=== PATIENT | female | born 1995 | race Hispanic/Latino ===

== ENCOUNTER 2017-09-28 19:18 | Day surgery (SDC) | payer MEDICAID, OTHER ==
[2017-09-28 19:49] VITALS: BMI 46.6
[2017-09-28 19:50] VITALS: BP 117/56; TEMP 99
[2017-09-28 20:24] LABS: Amnisure Test No Membranes Rupture (No Rupture)
[2017-09-28 20:25] LABS: Amnisure Internal Control QC ACCEPTABLE (ACCEPTABLE)
--- NOTE | 2017-09-28 20:27 | PDOC.FPROB ---
Addendum entered and electronically signed by Gloria Madrigal MD 09/28/17 21:40 : VP3 neg. Membranes still intact. Patient will be discharged and have close follow up with Dr. Doty. Encouraged pelvic rest and PO hydration. Patient has appointment with Dr. Doty on . Original Note: FMR OB H&P: HPI - History of Present Illness Chief Complaint: loss of fluid History of Present Illness: Patient is a 21 yo F at 35.5wks by LMP/10.1wk US presenting today for loss of fluid, she has a hx of a delivery with pre-eclampsia at 35wks with previous child and 2 spontaneous abortions. Patient also has PMH of DMII but was taken off meds for low sugars and apparent thyroid disorder resolved. Patient endorses dark fluid around 1300 with a arthur of clear fluid later in the day today. The patient reports no CTX at this time. States he feels baby move. She endorses headache and spots in her vision early today but says this has resolved. Her BP today was 117/76 on exam. Patient denies SOB or swelling more than normal. Primary Care Physician: Dr. Doty FMR OB H&P: Current - Care : 4 Para: 0121 Gestational age: 35.5 - OB Labs Blood type: unknown RH: unknown Antibody Screen: negative HIV: negative RPR: negative HepBsAg: negative Rubella: immune Quad screen: negative Urine drug screen: not done Gonorrhea: unknown Chlamydia: unknown GBS: unknown FMR OB H&P: History - Past Medical History PMH: DMII, apparent resolution of thyroid disorder - OB History OB History: 1 pre-term delivery with pre-eclampsia, 2 first trimester spontaneous abortions FMR OB H&P: Medications - Current Home Medications: Medication Instructions Recorded Confirmed Type Aspirin [Children's Aspirin] 81 mg PO DAILY 09/28/17 09/28/17 History Vit 108/Iron/Folic AC 1 tablet PO DAILY 09/28/17 09/28/17 History [ One Tablet] Allergies/Adverse Reactions: Allergies Allergy/AdvReac Type Severity Reaction Status Date / Time No Known Allergies Allergy Verified 09/28/17 19:45 FMR OB H&P: ROS - Review of Systems General: denies: fever/chills, weight/appetite/sleep changes, night sweats Eyes: reports: vision changes (dots in her vision). denies: eye pain, double vision ENT: denies: nasal congestion, rhinorrhea Cardiovascular: denies: chest pain, palpitation, edema Respiratory: denies: cough, congestion, shortness of breath Gastrointestinal: denies: abdominal pain, cramping, nausea, vomiting, diarrhea Genitourinary (Female): denies: incontinence, dysuria, hematuria, vaginal discharge, vaginal pain, vaginal bleeding, contractions, vaginal pressure FMR OB H&P: Vital Signs - Maternal Vital signs: Vital Signs - First Documented Temp Pulse Resp BP 99.0 F 97 18 117/56 L 09/28/17 19:44 09/28/17 19:44 09/28/17 19:44 09/28/17 19:44 - Heart Tones Baseline: 160 Variability: moderate Acceleration: present Deceleration: absent Category: category 1 FMR OB H&P: Physical Exam - Physical Exam General: NAD, awake, alert and oriented HEENT: normocephalic and atraumatic, EOMI, grossly normal vision, grossly normal hearing Neck: supple Chest: non-tender to palpation Heart: RRR, normal S1/S2, no murmurs/rubs/gallops General: CTAB, no respiratory distress, good air movement Abdomen: soft, gravid, non-tender FMR OB H&P: A/P - Problem List (1) Status: Acute (2) Diabetes Status: Acute Code(s): E11.9 - TYPE 2 DIABETES MELLITUS WITHOUT COMPLICATIONS Disposition: Patient is a 21 yo F at 35.5wks by LMP/10.1wks, with hx of delivery with pre-eclampsai at 35wks, presenting for loss of fluid. GBS Unknown. 1. Pre-term labor Rule Out - Amnisure ordered and resulted Neg - Ordered VP3 - results pending; if pos will tx - Completed speculum exam: no pooling, white discharge present - Will send patient home with close follow up with Dr. Doty Discussion: Date/Time: 09/28/172022 This H&P was discussed with [] and [] who agree with the above documentation and plan. Attending Addendum - Attending Addendum Date/Time: 09/29/17725 I personally evaluated the patient and discussed the management with Dr. Madrigal I agree with the History, Examination, Assessment and Plan documented above with any addition or exceptions noted below. 21 yo F at 35.5wks by LMP/10.1wk US presenting for r/o PPROM. Negative amnisure, pooling, valsalva and ferning. FHTs 150s/moderate variability/accels present/no decels BP Normotensive entire visit. Pt denies CAMACHO, visual changes and RUQ pain at this time. VP3 negative D/C to home with precautions.
== END 2017-09-28 21:55 | disposition home health service (06) ==
LOC: L&D/OP 19:18
PROVIDERS: ATTEND Student in an Organized Health Care Education/Training Program
DX: O42.913 Preterm premature rupture of membranes, unspecified as to length of time between rupture and onset of labor, third trimester (principal); O24.913 Unspecified diabetes mellitus in pregnancy, third trimester; Z3A.35 35 weeks gestation of pregnancy; Z79.82 Long term (current) use of aspirin
CPT/HCPCS: 84112; 87480; 87510; 87660; 99284

== ENCOUNTER 2017-10-14 22:00 | Inpatient (IN) | payer MEDICAID, OTHER ==
[2017-10-14 23:59] VITALS: BMI 47.8
[2017-10-15] MEDS: Lactated Ringer's 1,000 ML IV SCH ×3 (00:30→18:16)
[2017-10-15] MEDS ORDERED: Promethazine HCl 25 MG/ML VIAL IM PRN ×2 (00:31→17:25)
[2017-10-15] MEDS ORDERED: Ondansetron HCl/PF 4 MG/2 ML Vial IVP PRN ×2 (00:31→17:25)
[2017-10-15] MEDS ORDERED: Lidocaine 1% (PF) 30 ML VIAL SC PRN (00:37)
[2017-10-15] MEDS ORDERED: NS / Oxytocin 40 units/1000ml 1,000 ML IV PRN (00:37)
[2017-10-15] MEDS ORDERED: NS w/ Oxytocin 10 units 500 ML IV SCH (00:45)
[2017-10-15] MEDS: Misoprostol 100 MCG TAB VAG SCH ×2 (01:00→05:39)
--- NOTE | 2017-10-15 01:08 | PDOC.FPROB ---
FMR OB H&P: HPI - History of Present Illness Chief Complaint: IOL Indentification: 21 yo @ 38.1 wks by 10.1 wk US cw LMP History of Present Illness: Pt presents for IOL for poorly controlled type B DM Primary Care Physician: Dr. Doty FMR OB H&P: Current - Care : 4 Para: 1 Gestational age: 38.1 Due date: 10/28/17 Dating Criteria: 10.1 wk US cw LMP Course/Complications: DMB, hx of Pre-E, polyhyrdramnios on US - OB Labs Blood type: O RH: positive Antibody Screen: negative HIV: negative RPR: negative HepBsAg: negative Rubella: immune Quad screen: negative Urine drug screen: not done Gonorrhea: negative Chlamydia: negative A1c: 5.0-->5.2% GBS: negative - Additional Ultrasound Additional: polyhydramnios improved on repeat US FMR OB H&P: History - Past Medical History PMH: DMII treated with metformin - OB History OB History: 2 SABs Pre-Ecclampsia with premature delivery in 2011, iron-deficiency anemia - COGNOS History COGNOS History: none - Surgical History Sx History: cholecystectomy - Social History Social History: none - Family History Family History: neo syndrome FMR OB H&P: Medications - Current Home Medications: Medication Instructions Recorded Confirmed Type Aspirin [Children's Aspirin] 81 mg PO DAILY 09/28/17 10/15/17 History Vit 108/Iron/Folic AC 1 tablet PO DAILY 09/28/17 10/15/17 History [ One Tablet] Allergies/Adverse Reactions: Allergies Allergy/AdvReac Type Severity Reaction Status Date / Time No Known Allergies Allergy Verified 10/15/17 00:01 FMR OB H&P: ROS - Review of Systems General: reports: weight/appetite/sleep changes. denies: fever/chills Eyes: denies: vision changes, scotomas, floaters ENT: denies: nasal congestion, rhinorrhea Cardiovascular: denies: chest pain, palpitation Respiratory: denies: shortness of breath Gastrointestinal: denies: abdominal pain, indigestion Genitourinary (Female): denies: dysuria, hematuria Neurologic: denies: syncope, seizures Integumentary: denies: itching, rash Breast: denies: lumps, bumps FMR OB H&P: Vital Signs - Maternal Vital signs: BP 120/70s, pulse 80s, resp 16, afebrile - Heart Tones Baseline: 130 Variability: moderate Acceleration: present Deceleration: absent Category: category 1 [place] contractions every: none FMR OB H&P: Physical Exam - Physical Exam General: NAD HEENT: normocephalic and atraumatic, grossly normal vision, grossly normal hearing Neck: supple, trachea midline Chest: non-tender to palpation Heart: RRR, normal S1/S2, no murmurs/rubs/gallops General: CTAB, no respiratory distress Abdomen: soft, gravid, non-tender Musculoskeletal: normal gait and station, pulses present, FROM in all four extremities Neurological: sensation to pain,touch and proprioception grossly normal Skin: no rash, good tugor Lymphatic: no unusual bruising or bleeding - Pelvic Exam Vulva: normal hair distribution SVE: CL/TH/HI [place] score: 0 Membranes: intact Presentation: vertex Estimated Weight: 7 lbs FMR OB H&P: A/P - Problem List (1) Encounter for induction of labor Current Visit: Yes Status: Acute Code(s): Z34.90 - ENCNTR FOR SUPRVSN OF NORMAL , UNSP, UNSP TRIMESTER Assessment and Plan: -cervix CL/TH/HI - cytotec placed, recheck and re-administer in 4 hours - continuous monitoring (2) Diabetes mellitus during Current Visit: Yes Status: Acute Code(s): O24.919 - UNSP DIABETES MELLITUS IN , UNSPECIFIED TRIMESTER Assessment and Plan: - monitor blood glucose, accuchecks q2hr - insulin drip if needed (3) History of pre-eclampsia in prior , currently Current Visit: Yes Status: Acute Code(s): O09.299 - SUPRVSN OF PREG W POOR REPRODCTV OR OBSTET HISTORY, UNSP TRI Assessment and Plan: - blood pressure checks per unit routine - monitor for swelling or neurologic changes Disposition: admit to OB service for IOL, cytotec and pitocin for labor augmentation Discussion: Date/Time: 10/15/17 0106 This H&P was discussed with [Pepe] and [Kassandra] who agree with the above documentation and plan. Attending Addendum - Attending Addendum Date/Time: 10/15/17 0200 I personally evaluated the patient and discussed the management with Dr. Mary I agree with the History, Examination, Assessment and Plan documented above with any addition or exceptions noted below- 21 yo LAF @ 38 weeks admitted for induction of labor due to Class B DM. Denies any ctx, LOF, VB (+) FM. Denies any CAMACHO, visual changes. Afebrile BP 125/70 SVE closed/thick/high. FHTs- Category 1; [place]- no ctx. A/P: 1) IUP @ 38 weeks - Cytotec placed. Plan to recheck in [address] another if needed. Reassuring FHTs 2) Class B DM - Per patient BG post breakfast =119. Current BG pending. Monitor q2 hours.
[2017-10-15 01:17] LABS: Hemoglobin 11.6 g/dL (12.0-16.0); Mean Corpuscular HGB CONC 35.7 g/dL (32.0-36.0); Mean Corpuscular Hemoglobin 28.9 pg (27.0-31.0); Mean Corpuscular Volume 81.1 fL (78.0-98.0); Mean Platelet Volume 8.4 fL (7.4-10.4); Platelet Count 219 thou/uL (130-400); RBC Distribution Width 13.7 % (11.5-14.5); White Blood Cell (WBC) Count 8.2 thou/uL (4.8-10.8)
[2017-10-15 01:54] LABS: Syphilis Antibody Nonreactive (Nonreactive); Syphilis Antibody Index 0.06 S/CO (<1.00 Non-Reactive)
[2017-10-15 01:55] LABS: HBSAg Index 0.23 S/CO (0-0.99); Hep B Surf Ag Non-Reactive S/CO (NonReactive)
[2017-10-15 03:09] LABS: Glucose 102 mg/dL (70-105)
--- NOTE | 2017-10-15 05:43 | PDOC.LDPN ---
Labor & Delivery Progress Note - Subjective Subjective: painful contractions - Objective Vital signs reviewed and normal: yes General: resting Uterine fundus: non tender Dilation: 0 Effacement: 0% Station: -3 FHT: category 1 (baseline 140, moderate variability, accelx2) [place] contractions every: 3-6 mins Procedures: cytotec #2 placed - Assessment (1) Encounter for induction of labor Code(s): Z34.90 - ENCNTR FOR SUPRVSN OF NORMAL , UNSP, UNSP TRIMESTER Current Visit: Yes Status: Acute (2) Diabetes mellitus during Code(s): O24.919 - UNSP DIABETES MELLITUS IN , UNSPECIFIED TRIMESTER Current Visit: Yes Status: Acute (3) History of pre-eclampsia in prior , currently Code(s): O09.299 - SUPRVSN OF PREG W POOR REPRODCTV OR OBSTET HISTORY, UNSP TRI Current Visit: Yes Status: Acute Plan: continue plan of care (cytotec placed, continued monitoring, recheck in 4 hours )
--- NOTE | 2017-10-15 08:13 | PDOC.LDPN ---
Labor & Delivery Progress Note - Subjective Subjective: comfortable (Pt. states she can feel the contractions, denies cp, CAMACHO , LOF, or Dyspnea) - Objective Vital signs reviewed and normal: yes General: NAD, resting Uterine fundus: non tender FHT: category 1 (moderate variability, baseline 140s, no decels, accels present) [place] contractions every: 3-5 minutes - Assessment (1) Diabetes mellitus during Code(s): O24.919 - UNSP DIABETES MELLITUS IN , UNSPECIFIED TRIMESTER Current Visit: Yes Status: Acute (2) Encounter for induction of labor Code(s): Z34.90 - ENCNTR FOR SUPRVSN OF NORMAL , UNSP, UNSP TRIMESTER Current Visit: Yes Status: Acute (3) History of pre-eclampsia in prior , currently Code(s): O09.299 - SUPRVSN OF PREG W POOR REPRODCTV OR OBSTET HISTORY, UNSP TRI Current Visit: Yes Status: Acute (4) Current Visit: No Status: Acute Plan: continue plan of care -: This is a @ 38.3wks with PMH of pre-eclampsia in previous pregancy, DM class B She was unchaged at last SVE at 0546 at which point a second dose of cytotec was added. We will recheck her at 0900 and at that point consider a third dosed of cytotec vs. balloon, vs. pitocin.
[2017-10-15] MEDS ORDERED: Butorphanol Tartrate 1 MG/ML VIAL SLOW IVP PRN (09:48)
--- NOTE | 2017-10-15 15:39 | PDOC.LDPN ---
Labor & Delivery Progress Note - Subjective Subjective: painful contractions, vaginal pressure - Objective Vital signs reviewed and normal: yes General: NAD, resting Uterine fundus: palpable contractions SVE: 3/75/-2 Dilation: 3 Effacement: 75% Station: -2 FHT: category 1 [place] contractions every: 2-3min - Assessment (1) Encounter for induction of labor Code(s): Z34.90 - ENCNTR FOR SUPRVSN OF NORMAL , UNSP, UNSP TRIMESTER Current Visit: Yes Status: Acute Comment: at 38.0w presents for IOL for class BDM. Continues to make good progress. S/p cytotec x2, has ctx q2- 3 min. SVE 3/80/-2. Will start pitocin and get epidural for pain control. Cat 1 strip. Continue routine labor care. (2) Diabetes mellitus during Code(s): O24.919 - UNSP DIABETES MELLITUS IN , UNSPECIFIED TRIMESTER Current Visit: Yes Status: Acute Comment: Yaneth hay, latest 72. Plan: continue plan of care, pitocin for augmentation
[2017-10-15] MEDS ORDERED: DISCONTINUE ALL PREVIOUS NARCOTICS FS SCH (16:30)
[2017-10-15] MEDS ORDERED: Bupivacaine 0.5% 10 ML VIAL ONE (17:00)
[2017-10-15] MEDS ORDERED: Fentanyl 100 MCG/2 ML VIAL ONE (17:00)
[2017-10-15] MEDS ORDERED: Naloxone HCl 0.4 mg/ml Vial IVP PRN ×2 (17:25)
[2017-10-15] MEDS ORDERED: Acetaminophen 325 MG TAB PO PRN (17:25)
[2017-10-15] MEDS ORDERED: Eucerin (Mineral Oil/Petrolatum,White) 30 gm Jar TOP PRN (17:25)
[2017-10-15] MEDS ORDERED: Fentanyl 100 MCG/2 ML VIAL I-THECAL ONE (17:25)
[2017-10-15] MEDS ORDERED: diphenhydrAMINE 50 MG/ML VIAL IVP PRN (17:25)
[2017-10-15] MEDS ORDERED: Lactated Ringer's 500 ML IV PRN (17:25)
[2017-10-15] MEDS ORDERED: ePHEDrine/0.9% NaCl/PF SYRINGE 50 mg/10 ml SLOW IVP PRN (17:25)
[2017-10-15] MEDS ORDERED: Bupivacaine 0.25% 10 ML VIAL EPIDURAL SCH (17:25)
[2017-10-15] MEDS ORDERED: fentaNYL Citrate/PF 400 MCG, Bupivacaine 0.5% 20 ML in Sodium Chloride 0.9% 72 ML EPIDURAL SCH (17:30)
[2017-10-15] MEDS ORDERED: Communication Order-Pharmacy FS SCH (17:30)
[2017-10-15] MEDS: NS w/ Oxytocin 10 units 500 ML IV SCH (17:37)
[2017-10-15] MEDS: Bupivacaine 0.5% 20 ML, fentaNYL Citrate/PF 400 MCG in Sodium Chloride 0.9% 72 ML EPIDURAL SCH (17:46)
--- NOTE | 2017-10-15 19:34 | PDOC.LDPN ---
Labor & Delivery Progress Note - Subjective Subjective: comfortable - Objective Vital signs reviewed and normal: yes General: NAD, breathing through contractions Uterine fundus: non tender Dilation: 3 Effacement: 75% Station: -2 FHT: category 1 (baseline 130, accelx2, no decels ) [place] contractions every: 2-6 mins Procedures: epidural placed - Assessment (1) Encounter for induction of labor Code(s): Z34.90 - ENCNTR FOR SUPRVSN OF NORMAL , UNSP, UNSP TRIMESTER Current Visit: Yes Status: Acute Comment: at 38.0w presents for IOL for class BDM. S/p cytotec x2, has ctx q3-6 min. pitocin began, currently 8 , epidural providing pain control. Cat 1 strip. Continue routine labor care. (2) Diabetes mellitus during Code(s): O24.919 - UNSP DIABETES MELLITUS IN , UNSPECIFIED TRIMESTER Current Visit: Yes Status: Acute Comment: Accuchecks wnl, latest 71. (3) History of pre-eclampsia in prior , currently Code(s): O09.299 - SUPRVSN OF PREG W POOR REPRODCTV OR OBSTET HISTORY, UNSP TRI Current Visit: Yes Status: Acute Comment: most recent pressure 122/70 Plan: continue plan of care (recheck in 2 hours)
--- NOTE | 2017-10-15 21:46 | PDOC.LDPN ---
Labor & Delivery Progress Note - Subjective Subjective: comfortable - Objective Vital signs reviewed and normal: yes General: NAD Uterine fundus: non tender Dilation: 4 Effacement: 75% Station: -3 FHT: category 1 (baseline 130, moderate variability, accelsx2) [place] contractions every: 2-6 mins, couplets Procedures: epidural in place - Assessment (1) Encounter for induction of labor Code(s): Z34.90 - ENCNTR FOR SUPRVSN OF NORMAL , UNSP, UNSP TRIMESTER Current Visit: Yes Status: Acute Comment: at 38.0w presents for IOL for class BDM. S/p cytotec x2, has ctx q2-6 min. pitocin began, currently 12, epidural providing pain control. Cat 1 strip. Continue routine labor care. (2) Diabetes mellitus during Code(s): O24.919 - UNSP DIABETES MELLITUS IN , UNSPECIFIED TRIMESTER Current Visit: Yes Status: Acute Comment: Accuchecks wnl, latest 71. (3) History of pre-eclampsia in prior , currently Code(s): O09.299 - SUPRVSN OF PREG W POOR REPRODCTV OR OBSTET HISTORY, UNSP TRI Current Visit: Yes Status: Acute Comment: most recent pressure 114/70 Plan: continue plan of care (increase pitocin per protocol. recheck in 2 hours, accucheck at that time )
--- NOTE | 2017-10-15 23:50 | PDOC.LDPN ---
Labor & Delivery Progress Note - Subjective Subjective: comfortable - Objective Vital signs reviewed and normal: yes General: NAD, resting Uterine fundus: non tender Dilation: 4 Effacement: 75% Station: -2 FHT: category 1 (baseline 130, moderate variability, accelerationsx3, no decels ) [place] contractions every: 2-8 mins Procedures: epidural in place - Assessment (1) Encounter for induction of labor Code(s): Z34.90 - ENCNTR FOR SUPRVSN OF NORMAL , UNSP, UNSP TRIMESTER Current Visit: Yes Status: Acute Comment: at 38.0w presents for IOL for class BDM. S/p cytotec x2, has ctx q2-8 min. pitocin began, currently 18, epidural providing pain control. Cat 1 strip. Continue routine labor care. (2) Diabetes mellitus during Code(s): O24.919 - UNSP DIABETES MELLITUS IN , UNSPECIFIED TRIMESTER Current Visit: Yes Status: Acute Comment: Accuchecks wnl, latest 73. (3) History of pre-eclampsia in prior , currently Code(s): O09.299 - SUPRVSN OF PREG W POOR REPRODCTV OR OBSTET HISTORY, UNSP TRI Current Visit: Yes Status: Acute Comment: most recent pressure 128/72 Plan: continue plan of care (continue pitocin up to 20 for one hour, then back to 10. recheck in 2 hours. )
[2017-10-16] MEDS: Bupivacaine 0.5% 20 ML, fentaNYL Citrate/PF 400 MCG in Sodium Chloride 0.9% 72 ML EPIDURAL SCH ×3 (01:01→12:26)
--- NOTE | 2017-10-16 02:04 | PDOC.LDPN ---
Labor & Delivery Progress Note - Subjective Subjective: comfortable - Objective Vital signs reviewed and normal: yes General: NAD, breathing through contractions Uterine fundus: non tender Dilation: 5 Effacement: 75% Station: -2 FHT: category 1 (baseline 130, moderate variability, accelsx3 no decels ) [place] contractions every: 2-5 mins Procedures: epidural placed - Assessment (1) Encounter for induction of labor Code(s): Z34.90 - ENCNTR FOR SUPRVSN OF NORMAL , UNSP, UNSP TRIMESTER Current Visit: Yes Status: Acute Comment: at 38.0w presents for IOL for class BDM. S/p cytotec x2, has ctx q2-8 min. pitocin began, currently 20, epidural providing pain control. Cat 1 strip. Continue routine labor care. (2) Diabetes mellitus during Code(s): O24.919 - UNSP DIABETES MELLITUS IN , UNSPECIFIED TRIMESTER Current Visit: Yes Status: Acute Comment: Accuchecks wnl, latest 73. (3) History of pre-eclampsia in prior , currently Code(s): O09.299 - SUPRVSN OF PREG W POOR REPRODCTV OR OBSTET HISTORY, UNSP TRI Current Visit: Yes Status: Acute Comment: most recent pressure 118/72 Plan: continue plan of care (recheck in two hours ), pitocin for augmentation
[2017-10-16] MEDS: Lactated Ringer's 1,000 ML IV SCH ×2 (02:33→14:47)
--- NOTE | 2017-10-16 04:48 | PDOC.LDPN ---
Labor & Delivery Progress Note - Subjective Subjective: comfortable - Objective Vital signs reviewed and normal: yes General: NAD Uterine fundus: non tender Dilation: 5 Effacement: 75% Station: -2 FHT: category 1 (130 baseline, moderate variability, accelsx3) [place] contractions every: 2-6 mins, couplets - Assessment (1) Encounter for induction of labor Code(s): Z34.90 - ENCNTR FOR SUPRVSN OF NORMAL , UNSP, UNSP TRIMESTER Current Visit: Yes Status: Acute Comment: at 38.0w presents for IOL for class BDM. S/p cytotec x2, has ctx q2-8 min. pitocin began, currently 14, epidural providing pain control. Cat 1 strip. Continue routine labor care. (2) Diabetes mellitus during Code(s): O24.919 - UNSP DIABETES MELLITUS IN , UNSPECIFIED TRIMESTER Current Visit: Yes Status: Acute Comment: Accuchecks wnl, latest 67. given gatorade. (3) History of pre-eclampsia in prior , currently Code(s): O09.299 - SUPRVSN OF PREG W POOR REPRODCTV OR OBSTET HISTORY, UNSP TRI Current Visit: Yes Status: Acute Comment: pressure in acceptable range Plan: continue plan of care (recheck in 2 hours, increase pit )
--- NOTE | 2017-10-16 06:06 | PDOC.LDPN ---
Labor & Delivery Progress Note - Subjective Subjective: comfortable - Objective Vital signs reviewed and normal: yes Uterine fundus: non tender Dilation: 5 Effacement: 75% Station: -2 FHT: category 1 (baseline 130, moderate variability, accelsx3, no decels ) [place] contractions every: monitor not in place Procedures: epidural placed - Assessment (1) Encounter for induction of labor Code(s): Z34.90 - ENCNTR FOR SUPRVSN OF NORMAL , UNSP, UNSP TRIMESTER Current Visit: Yes Status: Acute Comment: at 38.0w presents for IOL for class BDM. S/p cytotec x2, has ctx q2-8 min. pitocin began, currently 18, epidural providing pain control. Cat 1 strip. Continue routine labor care. (2) Diabetes mellitus during Code(s): O24.919 - UNSP DIABETES MELLITUS IN , UNSPECIFIED TRIMESTER Current Visit: Yes Status: Acute Comment: Accuchecks wnl, latest 81. (3) History of pre-eclampsia in prior , currently Code(s): O09.299 - SUPRVSN OF PREG W POOR REPRODCTV OR OBSTET HISTORY, UNSP TRI Current Visit: Yes Status: Acute Comment: pressure in acceptable range Plan: continue plan of care (recheck in 2 hours )
[2017-10-16] MEDS: NS w/ Oxytocin 10 units 500 ML IV SCH (06:46)
--- NOTE | 2017-10-16 06:48 | PDOC.EVN ---
Event Note - Event Note Event Note: PT comfortable with epidural. Last BG=81. Afebrile VSS SVE: 5/80%/-2 FHTs: 130s/mode variability/(+)accels/no decels (Category 1) [place]: ctx q3 min A/P: 1) IUP @ 38 2/7 weeks undergoing induction for Class B DM. Pitocin @16 mu Repeat SVE by me- agree with resident/nurse exam; bulging BOW with contraction and head engaged. AROM performed with clear fluid and no complications. Will repeat exam in 1-[address] IUPC if no change to be able to continue to titrate pitocin. 2) Pregestational DM lowest BG=68; given daryl crackers and gatorade with improvement though patient hestitant to eat or drink. Encouraged small amounts to maintain BG. If hypoglycemia recurs. may need to add IVF with glucose as piggyback.
--- NOTE | 2017-10-16 08:50 | PDOC.EVN ---
Event Note - Event Note Event Note: Pt. is complaining of pressure in her lower abdomen bilaterally. She denies CP or SOB. Check at 0830 shows unchanged 5/80/-2. I placed an IUPC at this time. We will continue monitoring FHTs as well as a cervical check in 2 hours. Glucose was 63 and we have added D5 IV. We will continue to monitor glucose.
[2017-10-16] MEDS ORDERED: NS / Oxytocin 40 units/1000ml 1,000 ML ONE (10:30)
[2017-10-16] MEDS ORDERED: Lidocaine 1% (PF) 30 ML VIAL ONE (10:30)
[2017-10-16] MEDS: Misoprostol 100 MCG TAB VAG SCH ×2 (12:23→12:24)
--- NOTE | 2017-10-16 15:22 | PDOC.LDPN ---
Labor & Delivery Progress Note - Objective Vital signs reviewed and normal: yes General: resting Uterine fundus: non tender FHT: category 2, variable decelerations [place] contractions every: 3-4 Plan: continue plan of care -: Pt resting comfortably after getting re-dosed by anesthesia. Cat II Tracing for occasional variable decel with contractions. Continue pitocin per protocol. Anticipate vaginal delivery
--- NOTE | 2017-10-16 16:50 | PDOC.OPDEL ---
OB Operative/Delivery Note Delivery Dr/Surgeon: Dr. Jenna Contreras, Dr. Dianelys Painting Pre-Delivery Diagnosis: medically indicated induction (Uncontrolled A2GDM) Procedure/Post Delivery Dx: spontaneous vaginal delivery Weeks gestation: 38 (38w2d) Anesthesia: epidural - Findings A Sex: male - 1 min: 8 - 5 min: 9 - Additional Findings/Plan Placenta delivered: spontaneous Repaired Obstetrical Laceration: none Estimated blood loss: QBL pending Compilations/Other Findings: This is a 21 year old female @ 38.2 wks who delivered a viable M infant at 1624 after induction of labor for uncontrolled A2GDM. Following an uneventful antepartum course, a vigorous male was delivered over an intact perineum in the occipitoanterior position. Anterior Shoulder and then remainder of the body delivered. Nuchal cord x2 were reduced after delivery. The head was held down and mouth and nares were bulb suctioned. Cord clamped and cut after 60 seconds delayed cord clamping and cord blood collected. Placenta delivered intact with a 3 vessel cord noted. Fundal massage was performed and the fundus was firm. The cervix and vagina were inspected and found to be free of lacerations. Infant went to nursery in good condition for routine care. Apgars were 8/9 at 1 & 5 minutes, respectively. Patient tolerated delivery well and went to after routine recovery/ care. QBL: pending Post delivery plan: routine recovery <Jenna Contreras - Last Filed: 10/16/17 16:49> Pre-Delivery Diagnosis: other (Indication for induction was diet controlled BDM , not uncontrolled A2GDM) <Dianelys Painting - Last Filed: 10/16/17 23:13> Attending Addendum - Attending Addendum Date/Time: 10/16/17 5692 I personally evaluated the patient and discussed the management with Dr. Contreras I agree with the History, Examination, Assessment and Plan documented above with any addition or exceptions noted below. I was present for and assisted in the entire uncomplicated . Please note that patient does not have uncontrolled A2GDM. She has diet controlled BDM. <Dianelys Painting - Last Filed: 10/16/17 23:13>
[2017-10-16] MEDS ORDERED: Lanolin Ointment 7 GM TUBE TOP PRN (18:42)
[2017-10-16] MEDS ORDERED: NS / Oxytocin 40 units/1000ml 1,000 ML IV SCH (18:42)
[2017-10-16] MEDS ORDERED: Bisacodyl 10 MG SUPP PR PRN (18:42)
[2017-10-16] MEDS: Ibuprofen 800 MG TAB PO SCH (21:09)
[2017-10-16] MEDS: Docusate Calcium (SURFAK) 240 MG CAP PO SCH (21:09)
[2017-10-17] MEDS: Misoprostol 100 MCG TAB VAG SCH (01:06)
[2017-10-17] MEDS: Lactated Ringer's 1,000 ML IV SCH (01:06)
[2017-10-17] MEDS: Ibuprofen 800 MG TAB PO SCH ×3 (06:17→21:34)
--- NOTE | 2017-10-17 08:55 | PDOC.PP ---
Post Progress Note Post Day #: 1 Subjective: Patient doing well this AM. No significant overnight events. Patient states her lochia is a little more than a period and has been decreasing since delivery. She is ambulating without difficulty. Pain is well controlled. Patient tolerating PO. PO intake tolerated: yes Flatus: yes Ambulation: yes Vital Signs (12 hours) Temp Pulse Resp BP 10/17/17 08:00 98.1 F 70 20 112/57 L 10/17/17 04:00 97.8 F 72 18 107/64 10/17/17 00:03 98.7 F 79 18 113/60 10/16/17 21:05 99.3 F 104 H 18 115/63 Weight Weight 111.13 kg - Physical Examination General: NAD Cardiovascular: no m/r/g, RRR Respiratory: clear to auscultation bilaterally, non-labored breathing Abdominal: + bowel sounds, lochia (A little more than a period), no distention, appropriately TTP Fundus firm & at: umbilicus Skin: no rash Neurological: no gross focal deficits Psychiatric: A&Ox3, normal affect Result Diagrams: 10/15/17 00:59 10/15/17 00:59 Additional Labs: Post Labs Blood Type O POSITIVE 10/15/17 00:59 Hep Bs Antigen Non-Reactive S/CO (NonReactive) 10/15/17 00:59 (1) Term delivered Code(s): O80 - ENCOUNTER FOR FULL-TERM UNCOMPLICATED DELIVERY Status: Acute (2) Obesity Code(s): E66.9 - OBESITY, UNSPECIFIED Status: Acute (3) Diabetes mellitus during Code(s): O24.919 - UNSP DIABETES MELLITUS IN , UNSPECIFIED TRIMESTER Status: Acute Comment: Yaneth wnl, latest 81. - Assessment/Plan 21 year old at 38.3 wks delivered TAGA M at 1624 on 10/16. No complications. Apgars 8/9. 1. 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 DM Class B, uncontrolled - Patient presented for induction of labor 2/2 uncontrolled DM class B - Last BG 111 prior to delivery - Advise patient to follow CC diet Dispo: Anticipate d/c home tomorrow <Felisa Unger - Last Filed: 10/17/17 09:03> Vital Signs (12 hours) Temp Pulse Resp BP 10/17/17 12:00 98.2 F 69 20 122/64 10/17/17 08:00 98.1 F 70 20 112/57 L 10/17/17 04:00 97.8 F 72 18 107/64 Weight Weight 111.13 kg Result Diagrams: 10/15/17 00:59 10/15/17 00:59 Additional Labs: Post Labs Blood Type O POSITIVE 10/15/17 00:59 Hep Bs Antigen Non-Reactive S/CO (NonReactive) 10/15/17 00:59 <Dianelys Painting - Last Filed: 10/17/17 13:10> Attending Addendum - Attending Addendum Date/Time: 10/17/17 1309 I personally evaluated the patient and discussed the management with Dr. Unger I agree with the History, Examination, Assessment and Plan documented above with any addition or exceptions noted below. Stable PPD #1 Pt did NOT have uncontrolled BDM. She was well controlled with diet only. Induction of labor at 38w was recommended by MFM. Meeting appropriate milestones. Anticipate D/C to home tomorrow. <Dianelys Painting - Last Filed: 10/17/17 13:10>
[2017-10-17] MEDS ORDERED: Adacel (T-DAP) 0.5 ML VIAL IM ONE (09:00)
[2017-10-17] MEDS: Docusate Calcium (SURFAK) 240 MG CAP PO SCH ×2 (10:29→21:34)
[2017-10-17] MEDS: Prenatal Vitamin 1 TAB PO SCH (10:29)
[2017-10-17] MEDS ORDERED: Bupivacaine/Epinephrine 0.25% 30 ML VIAL ONE (11:11)
[2017-10-17] MEDS ORDERED: Bupivacaine 0.25% HCL 30 ML VIAL ONE (11:11)
[2017-10-18] MEDS: Ibuprofen 800 MG TAB PO SCH (05:55)
--- NOTE | 2017-10-18 06:24 | PDOC.PP ---
Post Progress Note Post Day #: 2 Subjective: Pt. is doing well, bleeding is stopped. She has no complaints. Pt. has been nursing and bottle feeding. Pt. has good support system. PO intake tolerated: yes Flatus: yes Ambulation: yes Vital Signs (12 hours) Temp Pulse Resp BP 10/17/17 20:00 98.3 F 75 16 104/63 Weight Weight 111.13 kg - Physical Examination General: NAD Cardiovascular: no m/r/g, RRR Respiratory: clear to auscultation bilaterally, non-labored breathing Abdominal: + bowel sounds, lochia, no distention, appropriately TTP Fundus firm & at: umbilicus Extremities: negative homans (B) Neurological: no gross focal deficits Psychiatric: A&Ox3, normal affect Result Diagrams: 10/15/17 00:59 10/15/17 00:59 Additional Labs: Post Labs Blood Type O POSITIVE 10/15/17 00:59 Hep Bs Antigen Non-Reactive S/CO (NonReactive) 10/15/17 00:59 (1) Diabetes mellitus during Code(s): O24.919 - UNSP DIABETES MELLITUS IN , UNSPECIFIED TRIMESTER Status: Acute (2) Encounter for induction of labor Code(s): Z34.90 - ENCNTR FOR SUPRVSN OF NORMAL , UNSP, UNSP TRIMESTER Status: Acute (3) History of pre-eclampsia in prior , currently Code(s): O09.299 - SUPRVSN OF PREG W POOR REPRODCTV OR OBSTET HISTORY, UNSP TRI Status: Acute (4) Status: Acute - Assessment/Plan This is a 21 yo G4 now P1122 who delivered a TAGA male infant at 38.3 at 1624 on 10/16. no complications, APGARS 9/9 Term intrauterine delivered -Routine care. Encourage breast and bottle feeding and bonding with infant. We will also encourage ambulation and po intake. DM Class B, diet controlled -Continue lifestyle modification. Disposition: home today <Ulisses Madison - Last Filed: 10/18/17 11:04> Vital Signs (12 hours) Temp Pulse Resp BP Pulse Ox 10/18/17 09:10 98.1 F 73 16 117/80 98 10/18/17 08:10 98.1 F 73 16 Weight Weight 111.13 kg Result Diagrams: 10/15/17 00:59 10/15/17 00:59 Additional Labs: Post Labs Blood Type O POSITIVE 10/15/17 00:59 Hep Bs Antigen Non-Reactive S/CO (NonReactive) 10/15/17 00:59 <Dianelys Painting - Last Filed: 10/18/17 11:15> Attending Addendum - Attending Addendum Date/Time: 10/18/17 1114 I personally evaluated the patient and discussed the management with Dr. Madison I agree with the History, Examination, Assessment and Plan documented above with any addition or exceptions noted below. Stable PPD #2 s/p uncomplicated . Meeting appropriate milestones. Stable for d/c to home today. <Dianelys Painting - Last Filed: 10/18/17 11:15>
[2017-10-18 09:11] VITALS: BP 117/80; TEMP 98.1
[2017-10-18] MEDS: Prenatal Vitamin 1 TAB PO SCH (09:16)
[2017-10-18] MEDS: Docusate Calcium (SURFAK) 240 MG CAP PO SCH (09:17)
== END 2017-10-18 12:55 | disposition home or self-care (01) | DRG 775 ==
LOC: L&D 22:58 → 3SW 10-16 18:44
PROVIDERS: ADMIT Student in an Organized Health Care Education/Training Program; ATTEND Student in an Organized Health Care Education/Training Program
PROC: 3E033VJ Introduction of Other Hormone into Peripheral Vein, Percutaneous Approach (ICD-10-PCS; 2017-10-15)
PROC: 3E0P7VZ Introduction of Hormone into Female Reproductive, Via Natural or Artificial Opening (ICD-10-PCS; 2017-10-15)
PROC: 10E0XZZ Delivery of Products of Conception, External Approach (ICD-10-PCS; principal; 2017-10-16)
DX: O99.284 Endocrine, nutritional and metabolic diseases complicating childbirth (principal); Z37.0 Single live birth; Z3A.38 38 weeks gestation of pregnancy; Z88.0 Allergy status to penicillin; O69.81X0 Labor and delivery complicated by cord around neck, without compression, not applicable or unspecified; E11.9 Type 2 diabetes mellitus without complications; E28.2 Polycystic ovarian syndrome; D50.9 Iron deficiency anemia, unspecified; O99.02 Anemia complicating childbirth
CPT/HCPCS: 36415; 36416; 51701; 51702; 82947; 85027; 86780; 86850; 86900; 86901; 87340; J0595; J2001; J3010; J3490; J7050; S0020

== ENCOUNTER 2018-11-16 14:59 | Outpatient (CLI) | payer OTHER ==
--- NOTE | 2018-11-16 15:27 | ULT ---
EXAM: RIGHT LOWER EXTREMITY VENOUS DUPLEX ULTRASOUND INCLUDING COLOR AND SPECTRAL DOPPLER IMAGIN11/16/18 HISTORY: Right calf pain and swelling. FINDINGS: Exam performed from groin to ankle including visualized greater saphenous, common femoral, superficia l femoral, profunda femoral, popliteal, trifurcation and posterior tibial vein regions. Phasic flow a t all levels with normal compressibility and normal augmentation. No intraluminal thrombus. IMPRESSION: No evidence for deep venous thrombosis. POS: OFF
== END 2018-11-16 15:00 | disposition home or self-care (01) ==
LOC: BICULT 14:59
PROVIDERS: ATTEND Student in an Organized Health Care Education/Training Program
DX: R22.41 Localized swelling, mass and lump, right lower limb (principal); M79.661 Pain in right lower leg

== ENCOUNTER 2018-12-04 10:05 | Inpatient (IN) | payer OTHER ==
[2018-12-04 10:45] VITALS: BMI 48.8
[2018-12-04 11:12] LABS: Amnisure Internal Control QC ACCEPTABLE (ACCEPTABLE); Amnisure Test No Membranes Rupture (No Rupture)
--- NOTE | 2018-12-04 11:56 | PDOC.FPROB ---
FMR OB H&P: HPI - History of Present Illness Chief Complaint: contractions, bloody mucus Indentification: 22 yo at 38.5 wga by LMP/16.0 week U/S History of Present Illness: Pt is here for contractions which started last night and rapidly progressed to 5 minutes apart. Up throughout the night and thought maybe she had leakage of fluid. This morning she saw mucus which was bloody, no jose vaginal bleeding. + movement. Otherwise, reports numbness in her legs bilaterally which is uncomfortable. Her contractions are painful. She reports being diabetic Type 2 prior to but was managing w/ diet. She checks sugars at home and it is never more than 130. Her allergy to PCN is her face turning red, not itchy, no hives, no facial swelling or throat closing. Wants epidural. Primary Care Physician: ELIJAH, Dr. Doty, Dr. Floyd. FMR OB H&P: Current - Care : 5 Para: 1122 Gestational age: 38.5 Due date: 12/14/2018 Dating Criteria: LMP c/w 16.0 wk sono Course/Complications: Metabolic Syndrome, Short interval Hx of 2 miscarriages - OB Labs Blood type: O RH: positive Antibody Screen: negative HIV: negative RPR: negative HepBsAg: negative Rubella: immune Quad screen: unknown 1 hour gtt: 101 GBS: negative Additional labs: All information was obtained from patient and from her yellow card. Her records from Clinic were not readily available at the time this note was written. FMR OB H&P: History - Past Medical History PMH: MEtabolic syndrome, denies all other diseases - OB History OB History: 2 previous vaginal deliveries, 35 weeks requiring NICU time. 38 weeks, no complications. 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 - Surgical History Sx History: denies - Social History Social History: denies - Family History Family History: denies FMR OB H&P: Medications - Current Home Medications: Medication Instructions Recorded Confirmed Type Acetaminophen [Tylenol Regular 650 mg PO Q4H PRN tab 10/18/17 12/04/18 Rx Strength] Pnv No.95/Ferrous Fum/Folic AC 1 each PO DAILY 12/04/18 12/04/18 History [ Formula] Allergies/Adverse Reactions: Allergies Allergy/AdvReac Type Severity Reaction Status Date / Time Penicillins Allergy Mild Rash Verified 12/04/18 10:46 FMR OB H&P: ROS - Review of Systems General: denies: fever/chills, weight/appetite/sleep changes, fatigue Eyes: denies: vision changes ENT: denies: nasal congestion, sinus pain/pressure, sore throat Cardiovascular: denies: chest pain, palpitation Respiratory: denies: cough, congestion, shortness of breath Gastrointestinal: reports: abdominal pain, cramping. denies: nausea, vomiting, diarrhea Genitourinary (Female): reports: contractions, vaginal pressure, other ( previous UTI in which was treated). denies: dysuria, hematuria, vaginal discharge, vaginal bleeding Musculoskeletal: denies: pain Neurologic: reports: numbness (legs). denies: seizures Integumentary: denies: itching, rash Endocrine: denies: polydipsia, polyuria Hematologic/Lymphatic: denies: prolonged or excessive bleeding Psychological: denies: depression, anxiety FMR OB H&P: Vital Signs - Maternal Vital signs: Vital Signs - First Documented Temp Resp BP 98.9 F 82 H 132/68 12/04/18 10:23 12/04/18 10:23 12/04/18 10:23 - Heart Tones Baseline: 130 (reactive) Variability: moderate Acceleration: present Deceleration: absent Category: category 1 [place] contractions every: 2-5 min FMR OB H&P: Physical Exam - Physical Exam General: NAD, awake, alert and oriented (breathing through ctx, painful ctx, appears uncomfortable) HEENT: normocephalic and atraumatic, no scleral icterus, grossly normal vision, grossly normal hearing Neck: supple, trachea midline Heart: RRR, normal S1/S2, no murmurs/rubs/gallops General: CTAB, no respiratory distress, no wheezing Abdomen: soft, gravid Neurological: no focal deficit Skin: no rash Lymphatic: no unusual bruising or bleeding, no purpura, no petechia Psychiatric: intact recent and remote memory, good judgement and insight, normal mood and affect - Pelvic Exam SVE: per nurse /-3, per Dr. Rose /-2 [place] score: 7, 9 Membranes: Intact Presentation: cephalic Estimated Weight: 9 lbs FMR OB H&P: Results - Labs Lab results: Laboratory Results - last 24 hr 12/04/18 10:50 Amnio Swab Test No Membranes Rupture - Imaging Imaging: bedside u/s for presentation FMR OB H&P: A/P - Problem List (1) Obesity Current Visit: No Status: Acute Code(s): E66.9 - OBESITY, UNSPECIFIED (2) Current Visit: No Status: Acute (3) Diabetes Current Visit: No Status: Chronic Code(s): E11.9 - TYPE 2 DIABETES MELLITUS WITHOUT COMPLICATIONS Disposition: Pt presents in active labor at term: - admit to L&D, rapid progression of labor - Lab contacted. GBS negative. - anticipate - epidural desired. Anesthesia consulted. - Accuchecks every 6 hours for history of DM/metabolic syndrome. A1C 5.2%. - Cervical checks q1-2h - Potentially large , and staff aware, prepare for possibility of shoulder dystocia Contacted Dr. Floyd and Dr. Doty for continuity. Likely house staff on day call will manage this patient through to delivery. Discussion: Date/Time: 12/04/18 1156 This H&P was discussed with Dr. Rose and Dr. Cantu who agree with the above documentation and plan. Signature: Eli Gilbert MD PGY-1 Addendum - Attending - Attending Attestation Date/Time: 12/04/18 1347 I personally evaluated the patient and discussed the management with Dr. Gilbert I agree with the History, Examination, Assessment and Plan documented above with any addition or exceptions noted below - 22 yo F @ 38.5 weeks presented c/o increasing ctx. ?LOF. Denies any VB (+) FM. Afebrile VSS. SVE /-2 BBOW per resident; Category 1 FHTs; [place]- ctx q3-4 min A/P: 1) IUP@38.5 weeks in active labor- Amnisure negative. Epidural for pain management. Continue expectant management. 2) Metabolic syndrome- will check accucheck
[2018-12-04] MEDS ORDERED: Ibuprofen 800 MG TAB PO PRN (12:15)
[2018-12-04] MEDS ORDERED: Lidocaine 1% (PF) 30 ML VIAL SC PRN (12:15)
[2018-12-04] MEDS ORDERED: Promethazine HCl 25 MG/ML VIAL IM PRN ×2 (12:15→14:36)
[2018-12-04] MEDS ORDERED: Acetaminophen 500 MG TAB PO PRN (12:15)
[2018-12-04] MEDS ORDERED: hydrALAZINE 20 MG/ML VIAL SLOW IVP PRN ×2 (12:15→20:59)
[2018-12-04] MEDS ORDERED: Ondansetron PF 4 MG/2 ML Vial IVP PRN ×3 (12:15→20:59)
[2018-12-04] MEDS ORDERED: NS / Oxytocin 40 units/1000ml 1,000 ML IV PRN (12:15)
[2018-12-04] MEDS: Lactated Ringer's 1,000 ML IV SCH ×2 (12:20→13:49)
[2018-12-04] MEDS ORDERED: Fentanyl 4 mcg/Bup 0.1% Cadd 100 ML ONE (12:37)
[2018-12-04 12:47] LABS: Hemoglobin 12.9 g/dL (12.0-16.0); Mean Corpuscular Hemoglobin 26.8 pg (27.0-31.0); Mean Corpuscular Volume 78.7 fL (78.0-98.0); Mean Platelet Volume 8.9 fL (7.4-10.4); Platelet Count 214 thou/uL (130-400); RBC Distribution Width 14.5 % (11.5-14.5); White Blood Cell (WBC) Count 9.3 thou/uL (4.8-10.8)
[2018-12-04 13:27] LABS: Hep B Surf Ag Non-Reactive S/CO (NonReactive); Syphilis Antibody Nonreactive (Nonreactive); Syphilis Antibody Index 0.08 S/CO (<1.00 Non-Reactive)
[2018-12-04 13:31] LABS: Glucose 82 mg/dL (70-105)
[2018-12-04] MEDS ORDERED: ePHEDrine/0.9% NaCl/PF SYRINGE 50 mg/10 ml SLOW IVP PRN (14:36)
[2018-12-04] MEDS ORDERED: diphenhydrAMINE 50 MG/ML VIAL IVP PRN (14:36)
[2018-12-04] MEDS ORDERED: Acetaminophen 325 MG TAB PO PRN (14:36)
[2018-12-04] MEDS ORDERED: Lactated Ringer's 500 ML IV PRN (14:36)
[2018-12-04] MEDS ORDERED: Naloxone HCl 0.4 mg/ml Vial IVP PRN ×2 (14:36)
[2018-12-04] MEDS ORDERED: Fentanyl 4 mcg/Bupivacaine 0.1% Cassette 100 ML EPIDURAL SCH (14:45)
[2018-12-04] MEDS ORDERED: Communication Order-Pharmacy FS SCH (14:45)
--- NOTE | 2018-12-04 15:21 | PDOC.LDPN ---
Labor & Delivery Progress Note - Subjective Subjective: comfortable, vaginal pressure, no concerns - Objective Vital signs reviewed and normal: yes General: NAD Uterine fundus: non tender SVE: posterior, soft Dilation: 7 Effacement: 90% Station: -1 FHT: category 1, variability present [place] contractions every: 2-3 min Procedures: AROM AROM: clear fluid - Assessment (1) Obesity Code(s): E66.9 - OBESITY, UNSPECIFIED Current Visit: No Status: Acute (2) Current Visit: No Status: Acute (3) Diabetes Code(s): E11.9 - TYPE 2 DIABETES MELLITUS WITHOUT COMPLICATIONS Current Visit : No Status: Chronic Plan: continue plan of care -: - continue expectant mgmt - AROM at 1520, clear fluid - epidural in place. Cronin in place.
[2018-12-04] MEDS ORDERED: Misoprostol 200 MCG TAB ONE (18:18)
[2018-12-04] MEDS ORDERED: Misoprostol 200 MCG TAB PR SCH (19:30)
--- NOTE | 2018-12-04 20:09 | PDOC.OPDEL ---
Addendum entered and electronically signed by Ivis Early DO 12/04/18 20:13 : G&P should be corrected to now [id number] Original Note: OB Operative/Delivery Note Delivery Dr/Surgeon: Ute Early Bray Pre-Delivery Diagnosis: active labor Procedure/Post Delivery Dx: spontaneous vaginal delivery Anesthesia: epidural - Additional Findings/Plan Placenta delivered: spontaneous Repaired Obstetrical Laceration: none Estimated blood loss: 232 ml Compilations/Other Findings: Delivering Physician: Ute Early Attending: Soren Procedure: Spontaneous Vaginal Delivery Anesthesia: epidural QBL: 232 ml Pre-op Diagnosis: 1. Term intrauterine in labor 2. Hx of labor 3. Hx of preeclampsia in first 4. PCOS 5. Metabolic syndrome Post-op Diagnosis: 1. Term intrauterine , delivered 2. same as above Indications: A 22y/o female presents to L&D in active labor Delivery Note: This is 22yo F G5 now P3113 @ 38.5 wks who delivered a viable F infant at 1843 on 12/04/2018. Following an uneventful antepartum course, a vigorous Female was delivered over an intact perineum in the occipitoanterior position. Anterior Shoulder and then remainder of the body delivered. No nuchal cord. The head was held down and mouth and nares were bulb suctioned. Cord clamped after delayed cord clamping and cut and cord blood collected. Placenta delivered intact in the [place] presentation with a 3 vessel cord noted. Fundal massage was performed and the fundus was firm. The cervix and vagina were inspected and found to be free of lacerations. NE Cytotec 800 mcg was administered for prophylaxis. went to nursery in good condition for routine care. Apgars were 9/9 at 1 & 5 minutes, respectively. Patient tolerated delivery well and went to after routine recovery/care. QBL 232 ml. Attending Note: I was present for the above documented procedure. Uncomplicated . Patient transferred to for routine care after normal recovery. Baby went to nursery. Madeleine Post delivery plan: routine recovery
[2018-12-04] MEDS ORDERED: Bisacodyl 10 MG SUPP PR PRN (20:59)
[2018-12-04] MEDS ORDERED: Milk Of Magnesia 30 ML UDCUP PO PRN (20:59)
[2018-12-04] MEDS ORDERED: NS / Oxytocin 40 units/1000ml 1,000 ML IV SCH (20:59)
[2018-12-04] MEDS ORDERED: diphenhydrAMINE 25 MG CAP PO PRN (20:59)
[2018-12-04] MEDS ORDERED: Lanolin Ointment 7 GM TUBE TOP PRN (20:59)
[2018-12-04] MEDS: Docusate Calcium (SURFAK) 240 MG CAP PO SCH (23:29)
[2018-12-04] MEDS: Ibuprofen 800 MG TAB PO SCH (23:29)
[2018-12-05] MEDS: Ibuprofen 800 MG TAB PO SCH ×2 (06:06→13:55)
[2018-12-05] MEDS: Ferrous Sulfate 325 MG TAB PO SCH ×2 (08:45→16:43)
[2018-12-05] MEDS: Docusate Calcium (SURFAK) 240 MG CAP PO SCH (08:50)
[2018-12-05] MEDS ORDERED: Adacel (T-DAP) 0.5 ML SYRINGE IM ONE (09:00)
[2018-12-05] MEDS ORDERED: Prenatal Vitamin 1 TAB PO SCH (09:00)
--- NOTE | 2018-12-05 09:44 | PDOC.OBPPN ---
FMR OB PN: Subj - Interval History Hospital Day: 1 Day: PPD#1 Patient doing well. No complications. Lochia mild. Pain controlled. No complications with voiding. Ambulation well. Request early d/c if able. Chief Complaint: None Indentification: 22 year old --> s/p on 12/04/18 at 1843 Interval History: No significant overnight events. FMR OB PN: Obj - Maternal Vital signs: BP: 102/52-132/68 HR: 60 RR: 18 Tmax: 98.5F Pox: 97% on RA Wt: 113 kg - Urine output I&O: 12/04/18 12/05/18 12/06/18 06:59 06:59 06:59 Output Total 232 Balance -232 - Lochia Lochia: A little more than period, passed clot early this AM - Pain Management Pain scale: 2 Intervention: oral medication FMR OB PN: Exam - Physical Exam General: NAD, awake, alert and oriented HEENT: normocephalic and atraumatic, PERRLA, EOMI, MMM, conjunctiva clear, grossly normal vision, grossly normal hearing Breast: symmetric, non-tender Heart: RRR, no murmurs/rubs/gallops, pulses present, no edema General: CTAB, no respiratory distress, good air movement, no rales/rhonchi, no wheezing, no retractions Abdomen: soft, fundus(cm) (firm, below umbilicus), non-tender, bowel sound present Musculoskeletal: normal gait and station, pulses present, FROM in all four extremities Neurological: no tremor, no focal deficit Skin: no rash, good tugor Lymphatic: no unusual bruising or bleeding, no purpura Psychiatric: intact recent and remote memory, good judgement and insight, normal mood and affect - Pelvic Exam : no edema, normal lochia FMR OB PN: Data - Labs Lab results: Laboratory Results - last 24 hr 12/04/18 12/04/18 12/04/18 10:50 12:36 12:36 WBC RBC Hgb Hct MCV MCH MCHC RDW Plt Count MPV Glucose POC Glucose Amnio Swab Test No Membranes Rupture Syphilis IgG/IgM Ab Nonreactive Hep Bs Antigen Non-Reactive Blood Type Antibody Screen 12/04/18 12/04/18 12/04/18 12:36 12:36 12:36 WBC 9.3 RBC 4.80 Hgb 12.9 Hct 37.8 MCV 78.7 MCH 26.8 L MCHC 34.0 RDW 14.5 Plt Count 214 MPV 8.9 Glucose 82 POC Glucose Amnio Swab Test Syphilis IgG/IgM Ab Hep Bs Antigen Blood Type O POSITIVE Antibody Screen NEGATIVE 12/04/18 14:13 WBC RBC Hgb Hct MCV MCH MCHC RDW Plt Count MPV Glucose POC Glucose 96 Amnio Swab Test Syphilis IgG/IgM Ab Hep Bs Antigen Blood Type Antibody Screen FMR OB PN: A/P - Problem List (1) Term delivered Status: Acute Code(s): O80 - ENCOUNTER FOR FULL-TERM UNCOMPLICATED DELIVERY Comment: Uncomplicated . Meeting milestones. Request early d/c if able. Assessment and Plan: Monitor. Possible d/c today. (2) Metabolic syndrome Status: Acute Code(s): E88.81 - METABOLIC SYNDROME Comment: Encourage lifestyle changes. Encourage breast feeding. Assessment and Plan: Follow up with PCP. (3) PCOS (polycystic ovarian syndrome) Status: Acute Code(s): E28.2 - POLYCYSTIC OVARIAN SYNDROME Assessment and Plan: Follow up with PCP as needed. (4) History of delivery Status: Acute Code(s): Z87.51 - PERSONAL HISTORY OF PRE-TERM LABOR Assessment and Plan: Medically indicated. No need for 17-OHP. (5) Obesity Status: Acute Code(s): E66.9 - OBESITY, UNSPECIFIED Qualifiers: Obesity classification: adult class 3 (BMI >= 40) Serious obesity comorbidity presence: without serious comorbidity Body mass index: BMI 45.0- 49.9 Comment: Lifestyle changes and breast feeding encouraged. Risk discussed. Assessment and Plan: Follow up with PCP. Ambulating well. SCDs while in bed. Disposition: 22 year old G5 now P2123 delivered TAGA F infant at 38.5 wks via . 1. Routine PP care - PP day #1 - GBS neg - Rh +, Rubella immune - Meeting all PP milestones - Monitor lochia, received 800 mcg cytotec PP - PP contraception: interested in IUD - Encourage ambulation - Tolerating PO - Continue and pumping 2. Metabolic syndrome - Recommend lifestyle changes - Consider rechecking HgA1c in outpatient setting PP 3. PCOS - Recommend lifestyle changes 4. Hx PTD 5. Hx SAB x2 Dispo: Patient doing well and meeting PP milestones. Possible d/c home tomorrow. Gage Unger MD Discussion: I discussed the plan of care with Dr. Unger. Ok to d/c to home if meeting milestones and infant doing well. Signature: Note documented by myself. Patient seen and examined along side Dr. Unger. Madeleine
[2018-12-05] MEDS ORDERED: FLU VACC QS2019-20(6MOS UP)/PF 60 MCG/0.5 ML SYRINGE IM ONE (11:00)
[2018-12-05 16:42] VITALS: BP 107/65; TEMP 98.3
== END 2018-12-05 20:40 | disposition home or self-care (01) | DRG 807 ==
LOC: L&D/OP 10:05 → L&D 12:55 → 3SE 21:36
PROVIDERS: ADMIT Family Medicine; ATTEND Family Medicine
PROC: 10E0XZZ Delivery of Products of Conception, External Approach (ICD-10-PCS; principal; 2018-12-04)
PROC: 10907ZC Drainage of Amniotic Fluid, Therapeutic from Products of Conception, Via Natural or Artificial Opening (ICD-10-PCS; 2018-12-04)
PROC: 3E02340 Introduction of Influenza Vaccine into Muscle, Percutaneous Approach (ICD-10-PCS; 2018-12-05)
DX: O24.12 Pre-existing type 2 diabetes mellitus, in childbirth (principal); Z37.0 Single live birth; O99.284 Endocrine, nutritional and metabolic diseases complicating childbirth; E88.81 Metabolic syndrome and other insulin resistance; E11.9 Type 2 diabetes mellitus without complications; Z3A.38 38 weeks gestation of pregnancy; O99.214 Obesity complicating childbirth; E66.9 Obesity, unspecified; E28.2 Polycystic ovarian syndrome; Z23 Encounter for immunization; Z88.0 Allergy status to penicillin
CPT/HCPCS: 36416; 82947; 84112; 85027; 86780; 86850; 86900; 86901; 87340; J2405

== ENCOUNTER 2023-08-22 14:37 | Emergency (ER) | payer OTHER ==
[2023-08-22] MEDS ORDERED: Acetaminophen 500 MG TAB ONE (14:54)
[2023-08-22] MEDS ORDERED: Methocarbamol 500 MG TAB ONE (14:54)
[2023-08-22] MEDS ORDERED: Ketorolac Tromethamine 30 MG (1 mL) VIAL ONE (14:55)
== END 2023-08-22 15:00 | disposition home or self-care (01) ==
LOC: ERS 14:37
DX: S39.012A Strain of muscle, fascia and tendon of lower back, initial encounter (principal); M54.41 Lumbago with sciatica, right side; X50.0XXA Overexertion from strenuous movement or load, initial encounter; Y93.F2 Activity, caregiving, lifting; Y92.59 Other trade areas as the place of occurrence of the external cause
CPT/HCPCS: J1885